=== PATIENT | female | born 1945 | race Hispanic/Latino ===

== ENCOUNTER → 2022-01-22 | Outpatient (CLI) | payer MEDICARE | END | disposition home or self-care (01) | LOC: RAH 13:50 | PROVIDERS: ATTEND Orthopaedic Surgery | DX: M17.0 Bilateral primary osteoarthritis of knee (principal); M25.461 Effusion, right knee; M16.11 Unilateral primary osteoarthritis, right hip; M25.751 Osteophyte, right hip; M19.071 Primary osteoarthritis, right ankle and foot; M77.31 Calcaneal spur, right foot | CPT/HCPCS: 73700 ==

== ENCOUNTER 2022-02-20 06:07 | Observation (INO) | payer MEDICARE ==
[2022-02-20] VITALS (25 sets, daily range): BP systolic 114–159; BP diastolic 61–84
[~2022-02-20] VITALS: Ht 172.7 cm; Wt 98.6 kg
[2022-02-20] MEDS: TRANEXAMIC ACID 1000MG/10ML IV SCH ×2 (06:00→09:58)
[2022-02-20] MEDS: CLINDAMYCIN IVPB 600MG/50ML 50 ML IV SCH ×2 (06:00→09:48)
[~2022-02-20 06:07] MED LIST: ACET-2743 PO; ALPR-409 PO; ASCO100031 PO; ASPI-1443 PO; CETI-89 PO; ESCI20TA PO; FLUO2515O TP; FLUT16H NASAL; LEVO100T6 PO; MELO-108 PO; MULT-1192 PO; PRAV40TA3 PO; VITA400C79 PO; ZINC50TA64 PO; [UNRECOGNIZED DRUG - OTHER] PO; omega 3 PO; tumeric PO; vitamin d PO
[2022-02-20] MEDS: LACTATED RINGERS 1000ML 1,000 ML IV SCH ×3 (07:27→12:09)
[2022-02-20] MEDS ORDERED: AMLO-143 PO (07:38)
[2022-02-20] MEDS ORDERED: ROPIVICAINE 250MG+KETOROLAC 15MG+EPINEPHRINE 0.3+CLONIDINE 80 IV PRN ×5 (08:00)
[2022-02-20] MEDS: ACETAMINOPHEN 500 MG TABLET PO SCH ×2 (08:30→17:48)
[2022-02-20] MEDS ORDERED: POTASSIUM CHLORIDE 10% ELIXIR 20 MEQ/15 ML UDCUP PO PRN (08:30)
[2022-02-20] MEDS ORDERED: ONDANSETRON 4MG INJ IVP PRN (08:30)
[2022-02-20] MEDS: 0.9%NACL 1000ML 1,000 ML IV SCH ×2 (08:30→17:49)
[2022-02-20] MEDS ORDERED: HYDROCODONE/ACETAMINOPHEN 5/325 MG TAB PO PRN (08:30)
[2022-02-20] MEDS ORDERED: LIDOCAINE HCL-MPF 1% 2ML VIAL IV PRN (08:30)
[2022-02-20] MEDS ORDERED: KCL 20 MEQ ERTAB PO PRN (08:30)
[2022-02-20] MEDS ORDERED: MORPHINE 4 MG SYG IVP PRN (08:30)
[2022-02-20] MEDS ORDERED: POTASSIUM CHLORIDE 20MEQ/100ML 100 ML IV PRN (08:30)
[2022-02-20] MEDS ORDERED: TRANEXAMIC ACID 1000MG/10ML ONE (08:36)
[2022-02-20] MEDS: ALPRAZOLAM 0.25 MG TABLET PO SCH ×2 (09:00→21:24)
[2022-02-20] MEDS: ASPIRIN 81 MG EC TAB PO SCH ×2 (09:00→21:24)
[2022-02-20] MEDS: FLUTICASONE PROPIONATE 50MCG/SPRAY 16 GM BOTTLE NS SCH (09:00)
[2022-02-20] MEDS: FAMOTIDINE 20MG TAB PO SCH ×2 (09:00→21:24)
[2022-02-20] MEDS: AMLODIPINE 5 MG TAB PO SCH (09:00)
[2022-02-20] MEDS: POLYETHYLENE GLYCOL 3350 17 GM POWD.PACK PO SCH (09:00)
[2022-02-20] MEDS ORDERED: MIDAZOLAM HCL 1 MG/ML 2ML VIAL ONE (09:23)
[2022-02-20] MEDS ORDERED: PROPOFOL 10 MG/ML 20ML VIAL IV ONE (09:24)
[2022-02-20] MEDS ORDERED: LIDOCAINE PF 100MG/5ML (2%) SYRINGE 5ML ONE (09:24)
[2022-02-20] MEDS ORDERED: ROCURONIUM 10MG/1ML SYR 10 MG/ML ML ONE ×2 (09:24→10:15)
[2022-02-20] MEDS ORDERED: ROPIVACAINE 0.5% 5MG/ML 30ML IJ ONE (09:27)
[2022-02-20] MEDS: PHARMACY COMMUNICATION MISC SCH ×10 (09:30→17:49)
[2022-02-20] MEDS ORDERED: FLUOCINOLONE ACETONIDE TP PRN (09:30)
[2022-02-20] MEDS ORDERED: APPL TP PRN (09:30)
[2022-02-20] MEDS ORDERED: FENTANYL CITRATE PF 50 MCG/1 ML 2ML VIAL ONE ×2 (10:14→10:58)
[2022-02-20] MEDS ORDERED: EPHEDRINE SULFATE 50 MG/ML AMPULE ONE (10:15)
[2022-02-20] MEDS ORDERED: NEOSTIGMINE 5MG/5ML SYR IV ONE (11:23)
[2022-02-20] MEDS ORDERED: GLYCOPYRROLATE 1 MG/5 ML SYRINGE ONE (11:23)
[2022-02-20] MEDS ORDERED: ONDANSETRON 4MG INJ ONE (11:23)
[2022-02-20] MEDS: TRAMADOL HCL 50 MG TABLET PO SCH ×2 (12:00→17:48)
[2022-02-20] MEDS ORDERED: MEPERIDINE-PF 25 MG/ML SYG ONE ×2 (12:23→12:34)
[2022-02-20] MEDS: HYDROCODONE/ACETAMINOPHEN 10/325 MG TAB PO PRN ×2 (13:47→21:25)
[2022-02-20] MEDS: CLINDAMYCIN IVPB 900MG/50ML 50 ML IV SCH ×2 (14:49→21:23)
[2022-02-20] MEDS: KETOROLAC 15MG/ML VIAL (15MG/ML) IV PRN ×2 (15:34→23:20)
[2022-02-20] MEDS ORDERED: CETIRIZINE HCL 5 MG TABLET PO PRN (17:30)
[2022-02-20] MEDS ORDERED: MELOXICAM 7.5 MG TABLET PO SCH ×2 (21:00)
[2022-02-20] MEDS: ESCITALOPRAM OXALATE 20 MG PO SCH (21:00)
[2022-02-20] MEDS: [UNRECOGNIZED DRUG - OTHER] PO SCH (21:00)
[2022-02-20] MEDS: ZINC AMINO ACID CHELATE PO SCH (21:00)
[2022-02-20] MEDS: TUMERIC PO SCH (21:00)
[2022-02-21] MEDS: TRAMADOL HCL 50 MG TABLET PO SCH ×5 (00:31→23:42)
[2022-02-21] MEDS: ACETAMINOPHEN 500 MG TABLET PO SCH ×4 (00:32→23:41)
[2022-02-21 04:15] LABS: HEMATOCRIT 35.9 % (36-48); MEAN CORPUSCULAR HEMOGLOBIN 28.7 pg (27.0-33.0); MEAN CORPUSCULAR HGB CONC 32.6 g/dL (32.0-36.0); MEAN CORPUSCULAR VOLUME 88.2 fL (79-99); RED BLOOD CELL COUNT(AUTO) 4.07 MIL/uL (4.00-5.50); RED CELL DISTRIBUTION WIDTH 14.3 % (11.0-15.5); WHITE BLOOD COUNT (AUTO) 10.3 K/uL (4.8-10.8)
[2022-02-21] MEDS: HYDROCODONE/ACETAMINOPHEN 10/325 MG TAB PO PRN ×2 (04:22→20:23)
[2022-02-21 04:27] LABS: CREATININE 0.6 mg/dL (0.5-1.5); POTASSIUM 3.8 mmol/L (3.5-5.1)
[2022-02-21 04:30] VITALS: BP 110/60
[2022-02-21] MEDS: 0.9%NACL 1000ML 1,000 ML IV SCH (04:30)
[2022-02-21] MEDS: LEVOTHYROXINE 100 MCG TABLET PO SCH (06:17)
[2022-02-21 08:00] VITALS: BP 107/62
[2022-02-21] MEDS: FLUTICASONE PROPIONATE 50MCG/SPRAY 16 GM BOTTLE NS SCH (09:00)
[2022-02-21] MEDS: VITAMIN D 1000 UNIT PO SCH (09:00)
[2022-02-21] MEDS: ASPIRIN 81 MG EC TAB PO SCH ×2 (09:25→20:22)
[2022-02-21] MEDS: FAMOTIDINE 20MG TAB PO SCH ×2 (09:25→20:22)
[2022-02-21] MEDS: ALPRAZOLAM 0.25 MG TABLET PO SCH ×2 (09:25→20:22)
[2022-02-21] MEDS: MULTIVITAMIN TABLET PO SCH (09:25)
[2022-02-21] MEDS: AMLODIPINE 5 MG TAB PO SCH (09:26)
[2022-02-21] MEDS: POLYETHYLENE GLYCOL 3350 17 GM POWD.PACK PO SCH (09:26)
[2022-02-21 12:00] VITALS: BP 139/77
[2022-02-21] MEDS: KETOROLAC 15MG/ML VIAL (15MG/ML) IV PRN (15:05)
[2022-02-21 16:00] VITALS: BP 125/71
[2022-02-21 20:12] VITALS: BP 126/65
[2022-02-21] MEDS: ESCITALOPRAM OXALATE 20 MG PO SCH (21:00)
[2022-02-21] MEDS: [UNRECOGNIZED DRUG - OTHER] PO SCH (21:00)
[2022-02-21] MEDS: ZINC AMINO ACID CHELATE PO SCH (21:00)
[2022-02-21] MEDS: TUMERIC PO SCH (21:00)
[2022-02-21 23:41] VITALS: BP 153/76
[2022-02-22] MEDS: PHARMACY COMMUNICATION MISC SCH ×2 (01:05→05:40)
[2022-02-22 04:00] VITALS: BP 128/69
[2022-02-22] MEDS: LEVOTHYROXINE 100 MCG TABLET PO SCH (05:39)
[2022-02-22] MEDS: TRAMADOL HCL 50 MG TABLET PO SCH ×2 (05:39→12:48)
[2022-02-22 08:00] VITALS: BP 144/88
[2022-02-22] MEDS: VITAMIN D 1000 UNIT PO SCH (09:00)
[2022-02-22] MEDS: FLUTICASONE PROPIONATE 50MCG/SPRAY 16 GM BOTTLE NS SCH (09:00)
[2022-02-22] MEDS: AMLODIPINE 5 MG TAB PO SCH (09:23)
[2022-02-22] MEDS: POLYETHYLENE GLYCOL 3350 17 GM POWD.PACK PO SCH (09:23)
[2022-02-22] MEDS: ALPRAZOLAM 0.25 MG TABLET PO SCH (09:23)
[2022-02-22] MEDS: FAMOTIDINE 20MG TAB PO SCH (09:23)
[2022-02-22] MEDS: MULTIVITAMIN TABLET PO SCH (09:23)
[2022-02-22] MEDS: ASPIRIN 81 MG EC TAB PO SCH (09:23)
[2022-02-22] MEDS: KETOROLAC 15MG/ML VIAL (15MG/ML) IV PRN (09:24)
[2022-02-22] MEDS: ACETAMINOPHEN 500 MG TABLET PO SCH (09:24)
[2022-02-22 12:00] VITALS: BP 130/75
[2022-02-23] MEDS ORDERED: BISACODYL 10 MG SUPP.RECT RC PRN (08:30)
== END 2022-02-22 15:00 | disposition home or self-care (01) ==
LOC: DAH 06:07 → DAHIP 06:08 → DAH 06:08 → 4BH 12:48
PROVIDERS: ADMIT Orthopaedic Surgery; ATTEND Orthopaedic Surgery
DX: M17.11 Unilateral primary osteoarthritis, right knee (principal); Z20.822 Contact with and (suspected) exposure to COVID-19; I10 Essential (primary) hypertension; E03.9 Hypothyroidism, unspecified; Z79.82 Long term (current) use of aspirin; Z79.899 Other long term (current) drug therapy; Z98.890 Other specified postprocedural states
CPT/HCPCS: 27447; 36415; 64447; 76942; 80048; 85027; 87635; 87641; 93005; 96365; 96366; 96375; 96376 ×3; 97039 ×4; 97116 ×4; 97161; 97530 ×4; A4215; A4221; A4222; A4223; A4600; A4649 ×4; A4663; A4930; A5120; A6254; A6255; A6260; C1776; C9803; G0168; G0378 ×49; J0171; J0735; J1885 ×4; J2001; J2175 ×2; J2250; J2270 ×2; J2405; J2704; J2710; J2795 ×2; J3010 ×2; J3490 ×7; J7120 ×2

== ENCOUNTER → 2023-04-25 | Outpatient (CLI) | payer MEDICARE ==
[~2023-04-25] VITALS: Ht 170.2 cm; Wt 98.3 kg
[~2023-04-25] MED LIST changes: +ALPR0.255 PO; +AMLO-143 PO; +FISH12002 PO; -MELO-108 PO; -MULT-1192 PO; +MULT-1250 PO; +SEMA0.258 SQ; +VIT1TAB.18 PO; -VITA400C79 PO; +VITA400T9 PO; +VITAMIN D3 PO; -[UNRECOGNIZED DRUG - OTHER] PO; -omega 3 PO; -tumeric PO
[2023-04-25 12:59] VITALS: BP 185/83; PULSE 67; RESP 20
== END | disposition home or self-care (01) ==
LOC: DAH 10:00 → EDSTATUS 15:00
PROVIDERS: ATTEND Orthopaedic Surgery
DX: Z01.818 Encounter for other preprocedural examination (principal); Z20.822 Contact with and (suspected) exposure to COVID-19; M17.12 Unilateral primary osteoarthritis, left knee
CPT/HCPCS: 87641; 87426 ×2; A6260

== ENCOUNTER → 2023-05-09 | Outpatient (CLI) | payer MEDICARE ==
[~2023-05-09] VITALS: Ht 170.2 cm; Wt 97.9 kg
[~2023-05-09] MED LIST changes: -ACET-2743 PO; +ASPI-1521 PO; -CETI-89 PO; -FLUO2515O TP; +FLUO60OI2 TP; -FLUT16H NASAL; -vitamin d PO
[2023-05-09 12:12] LABS: BASOPHILS # (AUTO) 0.03 K/uL (0.00-0.20); BASOPHILS % (AUTO) 0.4 % (0.0-5.0); EOSINOPHILS # (AUTO) 0.18 K/uL (0.00-0.70); EOSINOPHILS % (AUTO) 2.6 % (0.0-8.0); HEMATOCRIT 41.9 % (36-48); IMMATURE GRANULOCYTE ABSOLUTE 0.01 K/uL (0-1); LYMPHOCYTES # (AUTO) 1.4 K/uL (1.0-4.8); LYMPHOCYTES % (AUTO) 19.8 % (21.0-51.0); MEAN CORPUSCULAR HEMOGLOBIN 28.5 pg (27.0-33.0); MEAN CORPUSCULAR HGB CONC 32.2 g/dL (32.0-36.0); MEAN CORPUSCULAR VOLUME 88.6 fL (79-99); MONOCYTES # (AUTO) 0.6 K/uL (0.1-1.0); MONOCYTES % (AUTO) 8.4 % (3.0-13.0); NEUTROPHILS # (AUTO) 4.7 K/uL (1.8-7.7); NEUTROPHILS % (AUTO) 68.7 % (40.0-77.0); PLATELET COUNT (AUTO) 247 K/uL (130-400); RED BLOOD CELL COUNT(AUTO) 4.73 MIL/uL (4.00-5.50); RED CELL DISTRIBUTION WIDTH 13.9 % (11.0-15.5); WHITE BLOOD COUNT (AUTO) 6.8 K/uL (4.8-10.8)
[2023-05-09 12:22] LABS: CREATININE 0.6 mg/dL (0.5-1.5); POTASSIUM 4.4 mmol/L (3.5-5.1)
[2023-05-09 12:24] LABS: INR 0.94 (0.85-1.15); PROTHROMBIN TIME 10.9 SEC (9.6-11.6)
[2023-05-09 17:45] VITALS: BP 131/76; PULSE 65; RESP 17
== END | disposition home or self-care (01) ==
LOC: DAH 10:00 → EDSTATUS 05-14 10:00
PROVIDERS: ATTEND Orthopaedic Surgery
DX: Z01.818 Encounter for other preprocedural examination (principal); Z20.822 Contact with and (suspected) exposure to COVID-19; M17.12 Unilateral primary osteoarthritis, left knee; Z88.0 Allergy status to penicillin; Z88.8 Allergy status to other drugs, medicaments and biological substances; Z88.6 Allergy status to analgesic agent; Z79.01 Long term (current) use of anticoagulants
CPT/HCPCS: 87641; 36415; 80048; 85025; 85730; 85610; A6260